=== PATIENT | male | born 1995 | race Caucasian/White ===

== ENCOUNTER 2016-12-19 17:17 | Emergency (ER) | payer OTHER, MEDICAID ==
[~2016-12-19] VITALS: Ht 177.8 cm; Wt 78.0 kg
[2016-12-19 17:23] VITALS: BP 142/74; PULSE 72; RESP 16; TEMP 98.9; O2SAT 99
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
[2016-12-19] MEDS ORDERED: NAPR500 PO (19:57)
[2016-12-19] MEDS ORDERED: CYCL1TAB29 PO (19:57)
== END 2016-12-19 20:05 | disposition home or self-care (01) ==
LOC: PHEFT 17:17
DX: S16.1XXA Strain of muscle, fascia and tendon at neck level, initial encounter (principal); V49.50XA Passenger injured in collision with unspecified motor vehicles in traffic accident, initial encounter; Y92.410 Unspecified street and highway as the place of occurrence of the external cause
CPT/HCPCS: 72050; 72125